=== PATIENT | female | born 1975 ===

== ENCOUNTER 2021-04-17 02:57 | Emergency (ER) | payer SELFPAY ==
[~2021-04-17] VITALS: Ht 167.6 cm; Wt 60.0 kg
[2021-04-17] MEDS ORDERED: MAALOX/HYOSCYAMINE/LIDOCAINE 45 ML BTL PO ONE (03:00)
[2021-04-17 03:03] VITALS: BP 122/77
--- NOTE | 2021-04-17 03:05 | NUR ---
Patient BIBA from [facility] c/o gen abd pain x2 days. Patient states she's been at [facility] x3 days for meth detox. Denies N/V. Patient is in NAD. Respirations even and unlabored.
[2021-04-17 03:15] LABS: BASOPHILS % (AUTO) 2 % (0-1); EOSINOPHILS % (AUTO) 4 % (1-7); LYMPHOCYTES % (AUTO) 46 % (22-44); MEAN PLATELET VOLUME 7.5 fL (7.4-10.4); MONOCYTES % (AUTO) 7 % (2-9); NEUTROPHILS % (AUTO) 40 % (42-75); PLATELET COUNT 294 x10^3/uL (130-400); RED BLOOD COUNT 4.57 x10^6/uL (3.82-5.3); RED CELL DISTRIBUTION WIDTH 14.2 % (9.6-15.2)
[2021-04-17 03:18] LABS: MD NO
[2021-04-17 03:28] LABS: ALANINE AMINOTRANSFERASE 21 U/L (12-78); ALBUMIN 3.1 g/dL (3.4-5.0); ANION GAP 6 mmol/L (5-15); CALCIUM 8.4 mg/dL (8.5-10.1); CHLORIDE 110 mmol/L (98-107); CREATININE 0.69 mg/dL (0.55-1.02)
[2021-04-17] MEDS ORDERED: PLEASE ENTER ALLERGIES MC SCH (03:30)
[2021-04-17 03:32] LABS: ALKALINE PHOSPHATASE 120 U/L (45-117); BILIRUBIN,TOTAL 0.3 mg/dL (0.2-1.0); TOTAL PROTEIN 6.5 g/dL (6.4-8.2)
== END 2021-04-17 04:38 | disposition home or self-care (01) ==
LOC: ED 03:27
DX: R10.13 Epigastric pain (principal)
CPT/HCPCS: 36415; 76700; 80053; 83690; 84703; 85025; 99284